=== PATIENT | female | born 1955 | race Asian ===

== ENCOUNTER 2019-08-29 11:02 | Emergency (ER) | payer OTHER ==
[~2019-08-29] VITALS: Ht 152.4 cm; Wt 59.1 kg
[~2019-08-29 11:02] MED LIST: AMLO-147 ORAL; ATOR20TA65 ORAL; HTN MED ORAL; LOSA50TA14 ORAL
[2019-08-29 11:12] VITALS: Ht 152.4 cm; Wt 59.1 kg
[2019-08-29] MEDS ORDERED: ONDANSETRON 4 MG INJ IV STA (12:11)
[2019-08-29] MEDS ORDERED: SOD CHLORIDE 0.9% 1,000 ML IV STA (12:11)
[2019-08-29 13:58] VITALS: BP 104/77; PULSE 65; RESP 14
== END 2019-08-29 14:10 | disposition home or self-care (01) ==
LOC: E/R 11:02
DX: R42 Dizziness and giddiness (principal); I10 Essential (primary) hypertension; R55 Syncope and collapse
CPT/HCPCS: 80048; 82962; 84484; 85025; 96374; J2405; J7030; Z7502; 93005